=== PATIENT | female | born 1955 | race Two or more races ===

== ENCOUNTER 2016-12-21 23:49 | Inpatient (IN) | payer OTHER ==
[~2016-12-21] VITALS: Ht 170.2 cm; Wt 70.3 kg
[2016-12-22] MEDS ORDERED: MORPHINE SULF INJ 2 MG/ML SYRINGE 1ML IV ONE ×2 (01:00→03:00)
[2016-12-22] MEDS ORDERED: SODIUM CHLORIDE 0.9% 1,000 ML IV ONE ×3 (01:00→03:45)
[2016-12-22 01:34] LABS: Basophils # (auto) 0 uL; Basophils % (auto) 0.3 % (0.0-2.0); Eosinophils # (auto) 0 uL; Eosinophils % (auto) 0.1 % (0.0-7.0); Hematocrit 43.2 % (36.0-46.0); Hemoglobin 14.7 g/dL (12.2-16.2); Lymphocytes # (auto) 0.8 uL; Lymphocytes % (auto) 10.1 % (10.0-50.0); Mean Corpuscular Hemoglobin 31.8 pg (28.0-32.0); Mean Corpuscular Hgb Conc. 33.9 g/dL (32.0-36.0); Mean Corpuscular Volume 93.6 fL (80.0-100.0); Mean Platelet Volume 10.1 fL (6.9-10.8); Monocytes # (auto) 0.2 uL; Monocytes % (auto) 2.8 % (0.0-12.0); Neutrophils # (auto) 6.8 uL; Neutrophils % (auto) 86.7 % (37.0-80.0); Nucleated Red Blood Cells % 0.1 %; Platelet Count (auto) 132 10^3/uL (140-450); Red Cell Distribution Width 12.7 % (11.8-14.3); White Blood Cell 7.9 10^3/uL (4.4-10.8)
[2016-12-22 01:49] LABS: INR 0.98 (0.9-1.15); Prothrombin Time 10.7 sec (9.37-12.3)
[2016-12-22 01:53] LABS: Urine Bilirubin Negative (Negative); Urine Blood Negative /uL (Negative); Urine Color Yellow (Yellow); Urine Glucose 2+ mg/dL (Normal); Urine Hyaline Cast FEW /lpf (0 - 2); Urine Ketone 2+ (Negative); Urine Mucus FEW (None Seen); Urine Nitrite Negative (Negative); Urine RBC 1 /hpf (0 - 4); Urine Squamous Epithelial Cell FEW /hpf (<5); Urine Urobilinogen Normal (Negative)
[2016-12-22] MEDS ORDERED: cloNIDine HCL 0.1 MG TAB PO ONE (02:15)
[2016-12-22 02:27] LABS: Albumin 3.4 g/dL (3.4-5.0); Alkaline Phosphatase 98 U/L (45-117); Amylase 60 U/L (25-115); Anion Gap 9 (5-15); Aspartate Aminotransferase 16 U/L (15-37); BUN/Creatinine Ratio 22.2; Bilirubin, Total 0.6 mg/dL (0.2-1.0); Blood Urea Nitrogen 16 mg/dL (7-18); Calcium 9.3 mg/dL (8.5-10.1); Carbon Dioxide 23 mmol/L (21-32); Chloride 108 mmol/L (98-107); GFR African American 105 mL/min; GFR Non-African American 87 mL/min; Glucose 214 mg/dL (74-106); Magnesium 1.8 mg/dL (1.6-2.6); Sodium 140 mmol/L (136-145); Total Protein 6.2 g/dL (6.4-8.2)
[2016-12-22] MEDS ORDERED: cefTRIAXone 1GM/50ML D5W 50 ML IV ONE (03:00)
[2016-12-22] MEDS ORDERED: ONDANSETRON HCL 4 MG/2 ML VIAL IV ONE (03:00)
[2016-12-22] MEDS ORDERED: metroNIDAZOLE 500MG/100ML 100 ML IV ONE (03:00)
[2016-12-22] MEDS ORDERED: DEXTROSE (50%) 50ML SYRG IV PRN (05:15)
[2016-12-22] MEDS ORDERED: ONDANSETRON HCL 4 MG/2 ML VIAL IV PRN (05:15)
[2016-12-22] MEDS ORDERED: ACETAMINOPHEN 500 MG TAB PO PRN (05:15)
[2016-12-22] MEDS ORDERED: MORPHINE SULF INJ 2 MG/ML SYRINGE 1ML IV PRN (05:15)
[2016-12-22] MEDS ORDERED: HYDROcodone-ACET 5/325MG TAB PO PRN (05:15)
[2016-12-22] MEDS: ACCU-CHEK COMFORT CURVE STRIP VI SCH ×4 (07:04→22:16)
[2016-12-22 13:00] VITALS: BP 104/59
[2016-12-22 14:02] VITALS: BP 129/72
[2016-12-22] MEDS ORDERED: PANTOPRAZOLE 40 MG/10 ML VIAL IV ONE (14:15)
[2016-12-22] MEDS: metroNIDAZOLE 500MG/100ML 100 ML IV SCH ×2 (14:39→22:16)
[2016-12-22 16:52] VITALS: BP 160/76
[2016-12-22] MEDS ORDERED: LISI-646 PO (17:57)
[2016-12-22] MEDS: LISINOPRIL 20 MG TAB PO SCH (18:37)
[2016-12-22 22:00] VITALS: BP 140/68
[2016-12-23 04:54] VITALS: BP 151/58
[2016-12-23] MEDS: metroNIDAZOLE 500MG/100ML 100 ML IV SCH ×2 (06:17→14:00)
[2016-12-23 06:37] LABS: Basophils # (auto) 0 uL; Basophils % (auto) 0.4 % (0.0-2.0); Eosinophils # (auto) 0.1 uL; Eosinophils % (auto) 1.1 % (0.0-7.0); Hematocrit 37.4 % (36.0-46.0); Lymphocytes # (auto) 1.6 uL; Lymphocytes % (auto) 26.3 % (10.0-50.0); Mean Corpuscular Hemoglobin 32.9 pg (28.0-32.0); Mean Corpuscular Hgb Conc. 34.9 g/dL (32.0-36.0); Mean Corpuscular Volume 94.4 fL (80.0-100.0); Mean Platelet Volume 11.1 fL (6.9-10.8); Monocytes # (auto) 0.6 uL; Monocytes % (auto) 9.2 % (0.0-12.0); Neutrophils # (auto) 3.9 uL; Nucleated Red Blood Cells % 0.1 %; Platelet Count (auto) 117 10^3/uL (140-450); Red Cell Distribution Width 12.6 % (11.8-14.3); White Blood Cell 6.2 10^3/uL (4.4-10.8)
[2016-12-23 06:53] LABS: Albumin 2.9 g/dL (3.4-5.0); BUN/Creatinine Ratio 21.7; Calcium 9.2 mg/dL (8.5-10.1)
[2016-12-23 06:56] LABS: Bilirubin, Total 0.5 mg/dL (0.2-1.0); Total Protein 5.1 g/dL (6.4-8.2)
[2016-12-23] MEDS: ACCU-CHEK COMFORT CURVE STRIP VI SCH ×2 (07:00→11:30)
[2016-12-23 07:17] VITALS: BP 150/61
[2016-12-23 08:00] VITALS: BP 150/61
[2016-12-23] MEDS ORDERED: cefTRIAXone 1GM/50ML D5W 50 ML IV SCH (09:00)
[2016-12-23] MEDS: LISINOPRIL 20 MG TAB PO SCH (09:48)
[2016-12-23] MEDS ORDERED: PANTOPRAZOLE 40 MG/10 ML VIAL IV SCH (10:00)
[2016-12-23 11:50] VITALS: BP 148/63
[2016-12-23 15:38] VITALS: BP 148/63
== END 2016-12-23 16:35 | disposition home or self-care (01) | DRG 389 ==
LOC: EDBD 23:49 → ER 23:52 → OVERFLOW 23:53 → WEST WING 12-22 09:29
PROVIDERS: ADMIT Nurse Practitioner Family; ATTEND Internal Medicine
DX: K56.600 Partial intestinal obstruction, unspecified as to cause (principal); N39.0 Urinary tract infection, site not specified; E44.0 Moderate protein-calorie malnutrition; E11.65 Type 2 diabetes mellitus with hyperglycemia; I10 Essential (primary) hypertension; I70.90 Unspecified atherosclerosis; Z87.11 Personal history of peptic ulcer disease; Z98.84 Bariatric surgery status; Z88.8 Allergy status to other drugs, medicaments and biological substances; Z68.24 Body mass index [BMI] 24.0-24.9, adult
CPT/HCPCS: 36415; 71010; 74176; 80053; 81001; 82150; 82962; 83036; 83605; 83690; 83735; 84484; 85025; 85610; 85730; 87081; 87086; 87088; 87186; 93005; 94761; 96361; 96365; 96375; 96376; C9113; J0696; J2405; J3490